=== PATIENT | female | born 1965 | race Caucasian/White ===

== ENCOUNTER → 2017-04-10 | Outpatient (CLI) | payer BC ==
[~2017-04-10] MED LIST: COLACE-DPS100 MG PO; FEOSOL-DPS325 MG PO; MOTRIN-DPS400 MG PO; PERCOCET 5 DPS1 TAB PO
== END | disposition home or self-care (01) ==
LOC: RAD.S 04-09 16:00
DX: Z12.31 Encounter for screening mammogram for malignant neoplasm of breast (principal)